=== PATIENT | male | born 1980 | race Two or more races ===

== ENCOUNTER 2019-09-15 22:19 | Emergency (ER) | payer OTHER ==
[~2019-09-15] VITALS: Ht 182.9 cm; Wt 94.8 kg
--- NOTE | 2019-09-15 22:20 | NUR ---
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
--- NOTE | 2019-09-15 22:30 | NUR ---
SEEN AND EXAMINED BY
[2019-09-15] MEDS ORDERED: LEVETIRACETAM (250 MG) 250 MG TABLET PO ONE ×2 (22:34→23:00)
[2019-09-15] MEDS ORDERED: LORAZEPAM INJ 2 MG/ML VIAL ONE (22:34)
--- NOTE | 2019-09-15 22:48 | NUR ---
PT IS WHEELED TO CT SCAN VIA [facility].
[2019-09-15] MEDS ORDERED: LORAZEPAM INJ 2 MG/ML VIAL IM ONE (23:00)
--- NOTE | 2019-09-15 23:48 | NUR ---
Patient discharged to home in stable condition. Written and verbal after care instructions given. Patient verbalizes understanding of instruction. Pt medically cleared. Left with [employer].
[2019-09-15 23:49] VITALS: BP 142/89
== END 2019-09-15 23:57 ==
LOC: ER 22:20
DX: G40.909 Epilepsy, unspecified, not intractable, without status epilepticus (principal); I10 Essential (primary) hypertension
CPT/HCPCS: 70450; 96372; 99284; J2060

== ENCOUNTER 2020-10-20 09:37 | Emergency (ER) | payer OTHER ==
[~2020-10-20] VITALS: Ht 175.3 cm; Wt 97.1 kg
[2020-10-20] MEDS ORDERED: AMLODIPINE BESYLATE 5 MG TABLET PO ONE (10:00)
[2020-10-20] MEDS ORDERED: CHLORDIAZEPOXIDE HCL 25 MG CAPSULE PO ONE (10:00)
[2020-10-20] MEDS ORDERED: CHLORDIAZEPOXIDE HCL 25 MG CAPSULE ONE ×2 (10:00→10:05)
[2020-10-20] MEDS ORDERED: AMLODIPINE BESYLATE 10 MG TABLET ONE (10:00)
--- NOTE | 2020-10-20 10:10 | NUR ---
BIB [employer] C/O CHEST PAIN AND DIZZINESS FOR 2 DAYS SEEN IN OTHER HOSPITAL YESTERDAY FOR SAME CC. PT AAXO4, RR EVEN & UNLABORED. DENIES SOB, N/V, WEAKNESS, ARM/JAW PAIN AT THIS TIME. PT SEEN & EVAL'D BY DR. NICOLE. 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 WILL CONT TO MONITOR. [employer] OFFICERS AT BS.
[2020-10-20] MEDS ORDERED: AMLO-213 PO (10:15)
[2020-10-20] MEDS ORDERED: CLONIDINE HCL 0.1 MG TABLET ONE (11:13)
[2020-10-20] MEDS ORDERED: CARV6.252 PO (11:14)
[2020-10-20] MEDS ORDERED: CLONIDINE HCL 0.1 MG TABLET PO ONE (11:30)
--- NOTE | 2020-10-20 12:19 | NUR ---
Patient medically cleared for booking by ERMD and in stable condition. Written and verbal after care instructions given to patient & [employer] officers & verbalizes understanding of instruction.
[2020-10-20 12:21] VITALS: BP 162/105
== END 2020-10-20 12:22 ==
LOC: ER 09:37
DX: I10 Essential (primary) hypertension (principal); R42 Dizziness and giddiness; F10.10 Alcohol abuse, uncomplicated; Y90.9 Presence of alcohol in blood, level not specified

== ENCOUNTER 2021-03-08 00:45 | Emergency (ER) | payer OTHER ==
[~2021-03-08] VITALS: Ht 175.3 cm; Wt 97.5 kg
[~2021-03-08 00:45] MED LIST: AMLO-213 PO; CARV6.252 PO
[2021-03-08] MEDS ORDERED: NIFEdipine (10MG) 10 MG CAPSULE ONE (02:20)
[2021-03-08] MEDS ORDERED: LORAZEPAM 0.5 MG TABLET ONE (02:20)
[2021-03-08] MEDS ORDERED: NIFEdipine XL (30MG) 30 MG TAB PO ONE (02:29)
[2021-03-08] MEDS ORDERED: NIFEdipine XL (30MG) 30 MG TAB PO SCH (02:30)
[2021-03-08] MEDS ORDERED: LORAZEPAM 0.5 MG TABLET PO ONE (02:30)
--- NOTE | 2021-03-08 03:21 | NUR ---
PATIENT REFUSED ALL INTERVENTIONS. WILL BE RELEASED TO LAW ENFORCMENT IN STABLE CONDITION. AMA SIGNED.
[2021-03-08 03:22] VITALS: BP 134/99
== END 2021-03-08 03:23 ==
LOC: ER 00:46
DX: I16.0 Hypertensive urgency (principal); Z79.899 Other long term (current) drug therapy